=== PATIENT | female | born 1960 | race Caucasian/White ===

== ENCOUNTER 2023-09-06 14:14 | Emergency (ER) | payer OTHER ==
[~2023-09-06] VITALS: Ht 165 cm; Wt 89.0 kg
--- NOTE | 2023-09-06 14:39 | ED Upper Extremity ---
General Chief Complaint: Upper Extremity Stated Complaint: RT THUMB INJ Nursing Triage Note: pt states rt thumb pain for 3 wks Source: patient Exam Limitations: no limitations History of Present Illness Date Seen by Provider: Sep 06, 2023 Time Seen by Provider: 14:14 Initial Comments Patient is a 63-year-old female who presents for right thumb pain x3 weeks she states she crochets a lot and wonders if she may have strained it. She has no known injuries, no known foreign bodies or wounds. No fevers or chills. She does think it might be slightly swollen All other systems reviewed negative except per HPI Voice recognition software was used to help make this Allergies and Home Medications Allergies Coded Allergies: sumatriptan (Verified Allergy, Severe, 09/06/23) Patient Home Medication List Home Medication List Reviewed: Yes Review of Systems Constitutional: see HPI Past Bkwltgk-Fqzzgr-Fbpjic Hx Patient Social History Tobacco Use?: No Substance use?: No Pt feels they are or have been: No Immunizations Up To Date Influenza Vaccine Up-to-Date: Yes; Up-to-Date First/Initial COVID19 Vaccinat: no Past Medical History Surgery/Hospitalization HX: fibromyalgia, depression, anxiety, arthritis, htn Physical Exam Vital Signs Vital Signs - First Documented 09/06/23 14:20 Temp 36.8 Pulse 92 Resp 18 B/P (MAP) 148/85 (106) Pulse Ox 96 O2 Delivery Room Air Capillary Refill : Less Than 3 Seconds Height, Weight, BMI Height: '" Weight: lbs. oz. kg; 32.00 BMI Method: General Appearance: WD/WN, no apparent distress Shoulder: normal inspection, non-tender Elbow/Forearm: normal inspection, non-tender, no evidence of injury Wrist: Yes normal inspection, Yes non-tender, Yes no evidence of injury Hand: no evidence of injury, soft tissue tenderness (Tissue tenderness along the flexor portion of the right thumb distally. She has normal range of motion though with some pain. Normal sensation and strength is worse with flexion of the thumb against resistance) Neurologic/Tendon: normal sensation, normal motor functions, normal tendon functions Progress/Results/Core Measures Results/Orders Vital Signs/I&O 09/06/23 14:20 Temp 36.8 Pulse 92 Resp 18 B/P (MAP) 148/85 (106) Pulse Ox 96 O2 Delivery Room Air Blood Pressure Mean: 106 Departure Impression Primary Impression: Pain of right thumb Disposition: 01 HOME, SELF-CARE Condition: Stable Departure-Patient Inst. Referrals: NO,LOCAL PHYSICIAN (PCP/Family) Primary Care Physician Patient Instructions: Thumb Sprain ED Add. Discharge Instructions: As discussed I believe he had tendinitis in your thumb. Use the steroid medicine that you state you have at home for 3 days. Continue your Celebrex as previously prescribed. Try to get a thumb splint if you can to help immobilize it but use range of motion exercises in between activity. Return to the emergency department for any severe concerns. Follow-up with your primary doctor should your symptoms persist All discharge instructions reviewed with patient and/or family. Voiced understanding. TAWNYA BURNHAM DO Sep 06, 2023 14:39
[2023-09-06 14:55] VITALS: BP 148/85
== END 2023-09-06 14:55 | disposition home or self-care (01) ==
LOC: ER 14:17
DX: M79.644 Pain in right finger(s) (principal)
CPT/HCPCS: 99281